=== PATIENT | male | born 1990 | race Caucasian/White ===

== ENCOUNTER 2023-01-25 14:29 | Emergency (ER) | payer BC ==
[2023-01-25 14:54] LABS: BASOPHIL % 0.7 % (0.0-0.4); Basophil (Absolute #) 0.07 x10^3/uL (0-0.4); Eosinophil (Absolute #) 0.19 x10^3/uL (0-0.5); Hematocrit 44.8 % (42-50); Hemoglobin 15.9 g/dL (12.5-18.0); IMMATURE GRAN # 0.04 x10^3u/L (0.00-0.03); IMMATURE GRAN % 0.4 % (0.00-0.4); Lymphocyte (Absolute #) 2.47 x10^3/uL (1.0-4.6); Lymphocytes % 26.3 % (24.0-44.0); Mean Cell Volume 92.8 fL (78-100); Mean Corpuscular Hemoglobin 32.9 pg (26-32); Mean Corpuscular Hgb Concent. 35.5 g/dL (32-36); Mean Platelet Volume 10.9 fL (7.5-11.0); Monocyte (Absolute #) 0.83 x10^3/uL (0.0-1.3); Monocytes % 8.8 % (0.0-12.0); Neutrophil % 61.8 % (36.0-66.0); Platelet Count 278 x10^3/uL (150-450); Red Blood Count 4.83 x10^6/uL (4.1-5.6); Red Cell Distribution Width 11.7 % (11.5-14.0); White Blood Count 9.4 x10^3/uL (4.0-10.5)
[2023-01-25 15:01] LABS: ALBUMIN 4.8 g/dL (3.5-5.0); ALKALINE PHOSPHATASE 73 U/L (38-126); BLOOD UREA NITROGEN 12 mg/dL (9-20); CHLORIDE 104 mmol/L (98-107); Calcium 9.5 mg/dL (8.4-10.2); Carbon Dioxide 24 mmol/L (22-30); Creatinine 1 0.82 mg/dL (0.66-1.25); EST GLOMERULAR FILTRATION RATE > 60.0 ML/MIN; Glucose 123 mg/dL (74-106); SGOT/AST 54 U/L (17-59); SGPT/ALT 72 U/L (0-50); Total Protein 8.4 g/dL (6.3-8.2)
--- NOTE | 2023-01-25 15:02 | XRAY ---
Indication: Chest pain. Comparison: June 29, 2021 Portable chest again demonstrates normal heart, lungs, and bony thorax.
[2023-01-25 15:03] LABS: SODIUM 139 mmol/L (137-145)
[2023-01-25 15:18] LABS: ANION GAP 15 MEQ/L (5-15)
[2023-01-25 15:35] VITALS: O2SAT 94
[2023-01-25 17:04] VITALS: BP 140/88; PULSE 68
--- NOTE | 2023-01-25 17:44 | ERPHSYRPT ---
- History of Present Illness Time Seen by Provider: 01/25/23 14:39 Historian: patient Exam Limitations: no limitations Patient Subjective Stated Complaint: Chest pain Triage Nursing Assessment: Patient ambulated back to ED and transferred self to bed. Patient A+O X3. Patient's skin pink, warm and dry. Patient complains of left sided chest pain 5/10 that started on Tuesday and has gotten worse. Patient states left side of chest when palpating is tender. Patient denies N/V, fever or SOB. Lungs clear a/p jesse. Physician History: Patient 32-year-old male presents emergency department for evaluation of chest pain. Chest pain has been intermittent for the past 3 days. Chest pain worse with movement and palpation. Pain improved with rest. Patient rates his pain 5 out of 10 at its worst. Patient states he has been under significant stress due 2 prior to family matters. No associated nausea vomiting or diaphoresis. Patient's work entails physical labor. Patient does not recall any injuries but does not think that his pain is related to his job. Patient is otherwise healthy. He is a smoker. Patient voices no other complaints or concerns at this time. Portions of this note were created with voice recognition technology. There may be grammatical, spelling, punctuation or sound alike errors Timing/Duration: day(s) (3 days) Activities at Onset: none Quality: aching Location: substernal Chest Pain Radiation: no radiation (Left chest) Severity of Pain-Max: moderate Severity of Pain-Current: mild Modifying Factors: Improves With: palpation, other (Patient is a chest reproduces pain) Associated Symptoms: denies symptoms Prior Chest Pain/Cardiac Workup: no prior chest pain Nitro Today/Relief: no nitro taken today Aspirin Treatment Today: no aspirin today Allergies/Adverse Reactions: No Known Drug Allergies Allergy (Unverified 01/25/23 14:31) Home Medications: No Reportable Medications [No Reported Medications] 01/25/23 [History] Hx Influenza Vaccination/Date Given: No Hx Pneumococcal Vaccination/Date Given: No Immunizations Up to Date: Yes Travel Risk - International Travel Have you traveled outside of the country in past 3 weeks: No - Coronavirus Screening Are you exhibiting any of the following symptoms?: No Close contact with a COVID-19 positive Pt in past 14-21 Days: No - Vaccine Status Have you recieved a Covid-19 vaccination: No - Review of Systems Constitutional: No Symptoms, No Fever, No Chills Eyes: No Symptoms Ears, Nose, & Throat: No Symptoms Respiratory: No Symptoms, No Cough, No Dyspnea Cardiac: No Symptoms, No Chest Pain, No Edema, No Syncope Abdominal/Gastrointestinal: No Symptoms, No Abdominal Pain, No Nausea, No Vomiting, No Diarrhea Genitourinary Symptoms: No Symptoms, No Dysuria Musculoskeletal: No Symptoms, No Back Pain, No Neck Pain Skin: No Symptoms, No Rash Neurological: No Symptoms, No Dizziness, No Focal Weakness, No Sensory Changes Psychological: No Symptoms Endocrine: No Symptoms Hematologic/Lymphatic: No Symptoms Immunological/Allergic: No Symptoms All Other Systems: Reviewed and Negative - Past Medical History Pertinent Past Medical History: No Neurological History: No Pertinent History ENT History: No Pertinent History Cardiac History: No Pertinent History Respiratory History: No Pertinent History Endocrine Medical History: No Pertinent History Musculoskeletal History: No Pertinent History GI Medical History: No Pertinent History History: No Pertinent History Psycho-Social History: No Pertinent History Male Reproductive Disorders: No Pertinent History - Past Surgical History Past Surgical History: No Neuro Surgical History: No Pertinent History Cardiac: No Pertinent History Respiratory: No Pertinent History Gastrointestinal: No Pertinent History Genitourinary: No Pertinent History Musculoskeletal: No Pertinent History Male Surgical History: No Pertinent History - Social History Smoking Status: Current every day smoker How long have you smoked: years Exposure to second hand smoke: Yes Drug Use: none Patient Lives Alone: Yes - Nursing Vital Signs Nursing Vital Signs: Initial Vital Signs Temperature 98.3 F 01/25/23 14:33 Pulse Rate 90 01/25/23 14:33 Respiratory Rate 18 01/25/23 14:33 Blood Pressure 139/84 01/25/23 14:33 O2 Sat by Pulse Oximetry 98 01/25/23 14:33 Pain Scale Pain Intensity 4 - Physical Exam General Appearance: no apparent distress, alert Eye Exam: PERRL/EOMI, eyes nml inspection Ears, Nose, Throat Exam: normal ENT inspection, TMs normal, pharynx normal, moist mucous membranes Neck Exam: normal inspection, non-tender, supple, full range of motion Respiratory Exam: normal breath sounds, lungs clear, airway intact, No respiratory distress Cardiovascular Exam: regular rate/rhythm, normal heart sounds, normal peripheral pulses Gastrointestinal/Abdomen Exam: soft, normal bowel sounds, distention, No tenderness, No mass Back Exam: normal inspection, No CVA tenderness, No vertebral tenderness Extremity Exam: normal inspection, normal range of motion Neurologic Exam: alert, oriented x 3, cooperative, normal mood/affect, sensation nml, No motor deficits Skin Exam: normal color, warm, dry Lymphatic Exam: No adenopathy SpO2 Interpretation: normal SpO2: 94 O2 Delivery: Room Air - Course Nursing assessment & vital signs reviewed: Yes EKG Interpreted by Me: RATE (91), Sinus Rhythm, NORMAL AXIS, NORMAL INTERVALS - Radiology Exams Chest X-ray Interpretation: Teleradiologist Report (Normal heart lungs and bony t horax) Ordered Tests: Active Orders 24 hr Category Date Time Status Target Setter STAT Care 01/25/23 14:49 Active EKG-ER Only STAT Care 01/25/23 14:48 Active IV Insertion STAT Care 01/25/23 14:48 Active Pulse Oximetry (ED) STAT Care 01/25/23 14:48 Active CHEST 1 VIEW (PORTABLE) Stat Exams 01/25/23 14:49 Completed CBC W DIFF Stat Lab 01/25/23 14:30 Completed CMP Stat Lab 01/25/23 14:30 Completed D-DIMER QUANTITATIVE Stat Lab 01/25/23 14:44 Completed TROPONIN Q4H Lab 01/25/23 14:30 Completed TROPONIN Q4H Lab 01/25/23 16:50 Received TROPONIN Q4H Lab 01/25/23 23:00 Ordered Lab/Rad Data: Laboratory Result Diagrams 01/25/23 14:30 01/25/23 14:30 Laboratory Results 01/25/23 01/25/23 01/25/23 Range/Units 16:50 14:44 14:30 WBC (4.0-10.5) x10^3/uL RBC (4.1-5.6) x10^6/uL Hgb (12.5-18.0) g/dL Hct (42-50) % MCV (78-100) fL MCH (26-32) pg MCHC (32-36) g/dL RDW (11.5-14.0) % Plt Count (150-450) x10^3/uL MPV (7.5-11.0) fL Gran % (36.0-66.0) % Immature Gran % (Auto) (0.00-0.4) % Nucleat RBC Rel Count (0.00-0.1) % Eos # (Auto) (0-0.5) x10^3/uL Immature Gran # (Auto) (0.00-0.03) x10^3u/L Absolute Lymphs (auto) (1.0-4.6) x10^3/uL Absolute Monos (auto) (0.0-1.3) x10^3/uL Absolute Nucleated RBC (0.00-0.01) x10^3u/L Lymphocytes % (24.0-44.0) % Monocytes % (0.0-12.0) % Eosinophils % (0.00-5.0) % Basophils % (0.0-0.4) % Absolute Granulocytes (1.4-6.9) x10^3/uL Basophils # (0-0.4) x10^3/uL D-Dimer 0.32 (0.0-0.50) mg/L Sodium (137-145) mmol/L Potassium (3.5-5.1) mmol/L Chloride (98-107) mmol/L Carbon Dioxide (22-30) mmol/L Anion Gap (5-15) MEQ/L BUN (9-20) mg/dL Creatinine (0.66-1.25) mg/dL Estimated GFR ML/MIN Glucose (74-106) mg/dL Calcium (8.4-10.2) mg/dL Total Bilirubin (0.2-1.3) mg/dL AST (17-59) U/L ALT (0-50) U/L Alkaline Phosphatase (38-126) U/L Troponin I < 0.012 < 0.012 (0.000-0.034) ng/mL Serum Total Protein (6.3-8.2) g/dL Albumin (3.5-5.0) g/dL 01/25/23 01/25/23 Range/Units 14:30 14:30 WBC 9.4 (4.0-10.5) x10^3/uL RBC 4.83 (4.1-5.6) x10^6/uL Hgb 15.9 (12.5-18.0) g/dL Hct 44.8 (42-50) % MCV 92.8 (78-100) fL MCH 32.9 H (26-32) pg MCHC 35.5 (32-36) g/dL RDW 11.7 (11.5-14.0) % Plt Count 278 (150-450) x10^3/uL MPV 10.9 (7.5-11.0) fL Gran % 61.8 (36.0-66.0) % Immature Gran % (Auto) 0.4 (0.00-0.4) % Nucleat RBC Rel Count 0.0 (0.00-0.1) % Eos # (Auto) 0.19 (0-0.5) x10^3/uL Immature Gran # (Auto) 0.04 H (0.00-0.03) x10^3u/L Absolute Lymphs (auto) 2.47 (1.0-4.6) x10^3/uL Absolute Monos (auto) 0.83 (0.0-1.3) x10^3/uL Absolute Nucleated RBC 0.00 (0.00-0.01) x10^3u/L Lymphocytes % 26.3 (24.0-44.0) % Monocytes % 8.8 (0.0-12.0) % Eosinophils % 2.0 (0.00-5.0) % Basophils % 0.7 (0.0-0.4) % Absolute Granulocytes 5.80 (1.4-6.9) x10^3/uL Basophils # 0.07 (0-0.4) x10^3/uL D-Dimer (0.0-0.50) mg/L Sodium 139 (137-145) mmol/L Potassium 4.0 (3.5-5.1) mmol/L Chloride 104 (98-107) mmol/L Carbon Dioxide 24 (22-30) mmol/L Anion Gap 15 (5-15) MEQ/L BUN 12 (9-20) mg/dL Creatinine 0.82 (0.66-1.25) mg/dL Estimated GFR > 60.0 ML/MIN Glucose 123 H (74-106) mg/dL Calcium 9.5 (8.4-10.2) mg/dL Total Bilirubin 2.10 H (0.2-1.3) mg/dL AST 54 (17-59) U/L ALT 72 H (0-50) U/L Alkaline Phosphatase 73 (38-126) U/L Troponin I (0.000-0.034) ng/mL Serum Total Protein 8.4 H (6.3-8.2) g/dL Albumin 4.8 (3.5-5.0) g/dL - Progress Progress: improved Air Movement: good Progress Note: Heart score of 1 Patient 32-year-old male presents emergency department for evaluation of chest pain x3 days. Chest pain is left chest and worse with palpation to his chest. Testing ordered include EKG which revealed normal sinus rhythm. No ischemic changes. Chest x-ray was unremarkable. CBC CMP are both simply nonremarkable. D-dimer negative. Troponin negative x2. Patient is a smoker. Vital stable. Physical exam shows tenderness to the left chest. Palpation reproduces pain. Complexity of problem addressed is low. Problem is acute uncomplicated. No systemic manifestations. Complexity of data reviewed and analyzed is moderate. Test ordered. Test results reviewed. Testing results were used for medical decision making. EKG was independently reviewed by Dr. Pimentel. Patient served as independent historian. Risk of complication or morbidity/mortality of patient management is minimal. Patient reassessed. He has no active chest pain. Troponin negative x2. Heart score 1. No indication for further work-up at this time. Will discharge home. Patient does not have a primary care provider that he follows with. Patient referred to our service Dr. Tracy Mendoza. Portions of this note were created with voice recognition technology. There may be grammatical, spelling, punctuation or sound alike errors 01/25/23 17:48 01/25/23 17:51 Blood Culture(s) Obtained: No Antibiotics given: No Counseled pt/family regarding: lab results, diagnosis, need for follow-up, rad results - Departure Departure Disposition: Home Clinical Impression: Chest pain, Chest wall tenderness Condition: Stable Critical Care Time: No Referrals: DOCTOR,NO FAMILY [Primary Care Provider] - Follow up/PCP as directed JHONATHAN QUEZADA [ACTIVE STAFF] - Follow up/PCP as directed Instructions: Chest Pain That Is Not Caused by the Heart (DC) Additional Instructions: Discharge/Care Plan CARIE HERNANDEZ was seen on 01/25/23 in the Emergency Room. The patient was counseled regarding Diagnosis,Lab results, Imaging studies, need for follow up and when to return to the Emergency Room. Prescriptions given: Discharge Note I have spoken with the patient and/or caregivers. I have explained the patient's condition, diagnosis and treatment plan based on the information available to me at this time. I have answered the patient's and/or caregiver's questions and addressed any concerns. The patient and/or caregivers have as good understanding of the patient's diagnosis, condition and treatment plan as can be expected at this point. The vital signs have been stable. The patient's condition is stable and appropriate for discharge from the emergency department. The patient will pursue further outpatient evaluation with the primary care physician or other designated or consulting physician as outlined in the dis charge instructions. The patient and/or caregivers are agreeable to this plan of care and follow-up instructions have been explained in detail. The patient and/or caregivers have received these instruction. The patient/and or caregivers are aware that any significant change in condition or worsening of symptoms should prompt an immediate return to this or the closest emergency department or call 911.
== END 2023-01-25 18:05 | disposition home or self-care (01) ==
LOC: ED 14:29
DX: R07.9 Chest pain, unspecified (principal); R07.89 Other chest pain; Z28.310 Unvaccinated for COVID-19; Z72.0 Tobacco use
CPT/HCPCS: 36000; 36415; 71045; 80053; 84484; 85025; 85379; 93005; 93041; 94760; 99284

== ENCOUNTER 2024-12-07 15:10 | Emergency (ER) | payer BC ==
[2024-12-07 16:11] VITALS: RESP 18
--- NOTE | 2024-12-07 16:39 | ERPHSYRPT ---
- History of Present Illness Time Seen by Provider: 12/07/24 16:26 Source: patient Exam Limitations: no limitations Patient Subjective Stated Complaint: PT INJURED ANKLE WHILE TRYING TO SHUT OFF WATER VAVLE IN THE DARK, "ROLLED ANKLE ON WATER METER". Triage Nursing Assessment: PT IS A/OX4, RESP EASY, SKIN PINK WARM AND DRY, PT SPEACH CLEAR, PT STATES THAT HE CANNOT PUT PRESSUE ON RIGHT ANKLE, TRANSPORTED IN WC, S/O AT SIDE. RIGHT ANKLE SHOWS MODERATE SWELLING AND START OF BRUISING. NO LACERATIONS NOTED, BLEEDING NOTED. Physician History: Pt states 2 days ago he twisted his right ankle at home with 6/10 pain; denies numbness. Allergies/Adverse Reactions: No Known Drug Allergies Allergy (Verified 12/07/24 16:03) Home Medications: No Reportable Medications [No Reported Medications] 01/25/23 [History] Hx Tetanus, Diphtheria Vaccination/Date Given: Yes Hx Influenza Vaccination/Date Given: No Hx Pneumococcal Vaccination/Date Given: No Immunizations Up to Date: No Travel Risk - International Travel Have you traveled outside of the country in past 3 weeks: No - Emerging Infectious Disease Are you exhibiting symptoms associated with any current EIDs: No - Review of Systems Musculoskeletal: Joint Pain (right ankle pain) - Past Medical History Pertinent Past Medical History: No Neurological History: No Pertinent History ENT History: No Pertinent History Cardiac History: No Pertinent History Respiratory History: No Pertinent History Endocrine Medical History: No Pertinent History Musculoskeletal History: No Pertinent History GI Medical History: No Pertinent History History: No Pertinent History Psycho-Social History: No Pertinent History Male Reproductive Disorders: No Pertinent History - Past Surgical History Past Surgical History: No Neuro Surgical History: No Pertinent History Cardiac: No Pertinent History Respiratory: No Pertinent History Gastrointestinal: No Pertinent History Genitourinary: No Pertinent History Musculoskeletal: No Pertinent History Male Surgical History: No Pertinent History - Social History Smoking Status: Current every day smoker How long have you smoked: 6 Exposure to second hand smoke: Yes Drug Use: none Patient Lives Alone: Yes - Social Determinants of Health Will the patient participate in the screening: Declined to provide - Nursing Vital Signs Nursing Vital Signs: Initial Vital Signs Temperature 98.6 F 12/07/24 15:11 Pulse Rate 89 12/07/24 15:11 Respiratory Rate 18 12/07/24 15:11 Blood Pressure 138/85 12/07/24 15:11 O2 Sat by Pulse Oximetry 98 12/07/24 15:11 Pain Scale Pain Intensity 5 - Physical Exam General Appearance: alert Hips Exam: right: normal range of motion Knees Exam: right knee: normal range of motion Ankle Exam: right ankle: limited range of motion, soft tissue tenderness (moderate edema, tenderness and bruising of left ankle) Neuro/Tendon Exam: normal sensation Mental Status Exam: alert, cooperative SpO2 Interpretation: normal SpO2: 98 O2 Delivery: Room Air Procedures - Splinting Location of Splint: Right, Ankle Type of Splint: Orthoglass Short Leg Splint Splint Applied By: Other (ED staff) Pre-Proc Neuro Vasc Exam: normal Post-Proc Neuro Vasc Exam: neurovascular intact, good alignment - Course Nursing assessment & vital signs reviewed: Yes - Radiology Exams Right Ankle X-ray Interpretation: Interpreted by me (distal fibula fracture) Ordered Tests: Active Orders 24 hr Category Date Time Status Crutches STAT Care 12/07/24 18:03 Active Splint STAT Care 12/07/24 18:03 Active FOOT (MINIMUM 3 VIEWS) Stat Exams 12/07/24 16:37 Taken Medication Summary Discontinued Medications Generic Name Dose Route Start Last Admin Trade Name Freq PRN Reason Stop Dose Admin Hydrocodone Bitart/Acetaminophen 2 tab 12/07/24 16:37 12/07/24 16:45 Hydrocodone/Apap 5/325 1 Tab Tablet PO 12/07/24 16:38 2 tab STAT ONE Administration Hydrocodone Bitart/Acetaminophen Confirm 12/07/24 16:43 Hydrocodone/Apap 5/325 1 Tab Tablet Administered 12/07/24 16:44 Dose 2 tab .ROUTE .STK-MED ONE - Progress Progress: unchanged Counseled pt/family regarding: diagnosis, need for follow-up, rad results Medical Desision Making - Diagnostic Testing Diagnostic test were ordered, analyzed, and reviewed by me: Yes Radiological Interpretation: Interpreted by me - Departure Departure Disposition: Home Clinical Impression: Fracture of distal fibula Condition: Stable Critical Care Time: No Referrals: DOCTOR,NO FAMILY [Primary Care Provider] - Follow up/PCP as directed Additional Instructions: Elevate right foot above heart level for the next 24 hours. Wear splint until Orthopedic doctor is seen. Use crutches for ambulation. No weight bearing on right foot. Follow up with Dr. Vick(Public Transit Bus Driver) per Dr Celeste(orthopedic surgeon). . Forms: Work/School Release Form
[2024-12-07] MEDS ORDERED: NORCO 5/325 MG ONE (16:43)
[2024-12-07] MEDS: NORCO 5/325 MG PO ONE (16:45)
[2024-12-07 17:58] VITALS: BP 128/72; PULSE 76; TEMP 98.3
[2024-12-07 18:03] VITALS: O2SAT 98
--- NOTE | 2024-12-07 21:48 | XRAY ---
Indication: Pain following twisting injury. Comparison: None 3 nonweightbearing views right foot demonstrates minimally displaced oblique fracture lateral malleolus with soft tissue swelling. No other bony, articular, or soft tissue abnormalities.
== END 2024-12-07 19:04 | disposition home or self-care (01) ==
LOC: ED 15:10
DX: S82.831A Other fracture of upper and lower end of right fibula, initial encounter for closed fracture (principal); X50.0XXA Overexertion from strenuous movement or load, initial encounter; Z72.0 Tobacco use
CPT/HCPCS: 29515; 73630; 99283; A9270-GY